=== PATIENT | female | born 1990 | race Caucasian/White ===

== ENCOUNTER 2024-10-01 05:34 | Inpatient (IN) | payer OTHER, SELFPAY ==
[2024-09-30] MEDS: ACETAMINOPHEN 325 MG TABLET 650 MG PO (19:30)
[2024-10-01] VITALS (65 sets, daily range): BP systolic 81–135; BP diastolic 25–107; PULSE 58–103; RESP 16–18; TEMP 35.8–36.6; O2SAT 94–99; BMI 29.4
--- OUTSIDE RECORDS SUMMARY | 2024-10-01 05:40 | XMS_ITS | Data Portability ---
Author Organization [facility] [place] Address [address] [address] Assessment Encounter Date Assessment Date Assessment LastModified by Organization Details LastModified Time 09/25/2024 09/25/2024 Patient is _38__weeks . Discussed plan. [email or web address] Not available 09/25/2024 13:37:55 09/28/2024 09/28/2024 Patient is ___weeks . Discussed plan. Not available 09/28/2024 10:21:05 Plan of Treatment Reminders Order Date Submit Date Provider Last Modified By Organization Details Last Modified Time Details Appointments SURG CSection 2024 07:30A Darlyn DECKER MD Not available Not available Not available Lab None recorded. Referral None recorded. Procedures None recorded. Surgeries None recorded. Imaging non-stres s test 2024 025 [email or web address] [place], [address], [place], [address], 09/30/2024 02:59:45 US, obstetric , follow-up 2024 025 [facility], [address], [address], [place], [address], 09/28/2024 16:52:01 US, obstetric , biophysic al profile + non-stres s test 2024 025 [facility], [address], [address], [place], [address], 09/28/2024 18:40:01 Medication Orders None recorded. Patient TargetsNo targets recorded. Patient InstructionsNo instructions recorded. Reason for Referral None Reported. Results Created Date Observation Date Name Description Value Unit Range Abnormal Flag Note LastModifiedBy Organization Detail LastModifiedTime 09/04/1909/03/2024 CULTU RE: GROUP B STREP SCREE N, REFLE X SUSCE PTIBI LITY result report SEE RESULT S BELOW Test: Cultu re: Group B Strep , Refle x Susce ptibi lity ([facility]/ [facility] ) Speci men Sourc e: Vagin a/Rec margarita Speci men Type: Vagin al/Re ctal Speci men Date: 025 1701 Resul t Date: 2024 1357 Resul t Statu s: Final resul t Abnor mal: No Resul ting Lab: [facility] [address] [facility] [address] Tel: CULTU RE ----- ----- ----- --- No Group B strep isola tarun at 2 days (ángel ctive broth enhan cemen t) Not Available [facility] (Lab) [address], [place], [address], 09/06/2024 15:00:39 09/04/1909/03/2024 US, obste tric, follo w-up No observ ation record ed. [address], [facility], [place], [address], 09/09/2024 06:13:38 09/04/1909/03/2024 US, obste tric, follo w-up No observ ation record ed. catherine [place] [address], [place], [address], 09/03/2024 18:19:38 09/26/1909/25/2024 non-s tress test No observ ation record ed. [email or web address] [place] [address], [place], [address], 09/25/2024 20:15:05 09/29/19 25 09/28/2024 US, obste tric, follo w-up No observ ation record ed. [email or web address] [place] [address], [place], [address], 09/28/2024 18:39:50 09/29/19 25 09/28/2024 US, obste tric, bioph ysica l profi le + non-s tress test No observ ation record ed. [email or web address] [place] [address], [place], [address], 09/28/2024 18:40:01 09/29/19 25 09/28/2024 US, obste tric, follo w-up No observ ation record ed. [email or web address] [address], [facility], [place], [address], 09/29/2024 18:01:00 09/29/19 25 09/28/2024 non-s tress test No observ ation record ed. [email or web address] [place] [address], [place], [address], 09/28/2024 16:32:50 10/01/19 25 09/25/2024 non-s tress test No observ ation record ed. [email or web address] [place] [address], [place], [address], 09/30/2024 20:57:19 Result Notes None recorded. Problems Name Problem SNOMED Code Status Onset Date Resolution Date Notes Provider Name and Address Organization Details Recorded Time 57841321 Active 2024 Meg Cheng [facility] [place] - [facility] 15:03:48 Deliveries by [id number] Active Regan Decker MD [address], [place], [address], [facility] 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 19:55:25 Problem Notes None recorded. Procedures Surgical History Date Name Laterality Status Provider Name and Address Organization Details Recorded Time 4 Date of Last Pap Smear completed Meg [facility] 08/07/2024 14:58:23 3 Caesarean Section completed Meg [facility] 08/07/2024 14:57:48 0 extraction of wisdom tooth completed Sabrina Westtz [facility] 09/25/2024 12:08:36 Imaging Results None recorded. Procedure Notes None recorded. Medical Equipment None Reported. Allergies Allergen ID Allergen Name Allergen Category Reaction Reaction Severity Criticality Documentation Date Start Date Code Code System Note Provider Name and Address Organization Details Recorded Time 68421 Penicilli n Not available rash Not available Not available 08/07/2024 22329 RxNorm [facility] 14:57:38 Medications Name Sig Start Date Stop Date Status Note LastModified by Organization Details LastModified Time valacyclovir 500 mg tablet Take 1 tablet twice a day by oral route. 025 active Not Available Not Available Not Avai lable + DHA active Not Available No t Available Not Available Vitals Date Recorded Body height Body mass index (BMI) Body weight Body height Body mass index (BMI) Body weight Systolic blood pressure Diastolic blood pressure Systolic blood pressure Diastolic blood pressure Provider Name and Address Organization Details Last Updated DateTime 5 165.1 cm 29.8 kg/m2 98048.0 3 g 165.1 cm 29.8 kg/m2 75957.0 3 g 139 mm[Hg] 80 mm[Hg] 139 mm[Hg] 80 mm[Hg] Sabrina Lilly [facility] 20:13:48 Date Recorded Body weight Systolic blood pressure Diastolic blood pressure Provider Name and Address Organization Details Last Updated DateTime 09/28/2024 22751.8494 9 g 115 mm[Hg] 79 mm[Hg] Meg Cheng [facility] 09/28/2024 10:22:45 Date Recorded Body height Body mass index (BMI) Body weight Systolic blood pressure Diastolic blood pressure Provider Name and Address Organization Details Last Updated DateTime 09/28/2024 165.1 cm 29.5 kg/m2 94681.29 g 115 mm[Hg] 79 mm[Hg] RUMA Rodríguez [facility] 09:42:15 Social History Question Answer Notes LastModified by Organizat ion Details LastModified Time Tobacco Smoking Status Never Smoker Meg Cheng [facility] 08/07/2024 15:02:09 Are You Blind Or Do You Have Difficulty Seeing? No Information n ot available 08/07/2024 What Is Your Level Of Caffeine Consumption? Occasional Information not available 08/07/2024 How Much Tobacco Do You Chew? None [email or web address] Information not available 08/28/2024 In The 14 Days Before Symptom Onset, Have You Had Close Contact With A Laboratory-confirm ed COVID-19 While That Case Was Ill? No Information n ot available 08/07/2024 In The 14 Days Before Symptom Onset, Have You Had Close Contact With A Person Who Is Under Investigation For COVID-19 While That Person Was Ill? No Information not available 08/07/2024 Have You Been To An Area Known To Be High Risk For COVID-19? No Information not available 08/07/2024 Are You Deaf Or Do You Have Serious Difficulty Hearing? No Information not available 08/07/2024 What Type Of Diet Are You Following? REGULAR Information n ot available 08/07/2024 What Is The Highest Grade Or Level Of School You Have Completed Or The Highest Degree You Have Received? [id number] Information not available 08/07/2024 Are There Any Guns Present In Your Home? No Information not available 08/07/2024 Do You Use Your Seat Belt Or Car Seat Routinely? Yes Information not available 08/07/2024 Are You Sexually Active? Yes Information not available 08/07/2024 Do You Have Smoke And Carbon Monoxide Detectors In Your Home? Yes Information not available 08/07/2024 How Much Tobacco Do You Smoke? No [email or web address] Information not available 08/28/2024 Do You Use Sunscreen Routinely? Yes Information not available 08/07/2024 Have You Used IV Drugs? No [email or web address] Information not available 08/28/2024 Do You Have Difficulty Walking Or Climbing Stairs? No Information not available 08/07/2024 Sex: Unknown Functional Status Question Answer Note LastModified by Organizat ion Details LastModified Time Do you use any illicit or recreational drugs? No Information not available 08/07/2024 What is your level of alcohol consumption? Occasional Information not available 08/07/2024 Are you currently employed? Yes Information not available 08/07/2024 Are you able to walk? YESWOREST Information not available 08/07/2024 Are you able to care for yourself? Yes Information n ot available 08/07/2024 Do you have difficulty dressing or bathing? No Information not available 08/07/2024 Mental Status Question Answer Note LastModified by Organization D etails LastModified Time Do you feel stressed (tense, restless, nervous, or anxious, or unable to sleep at night)? [id number] Information not available 08/07/2024 Family History Relationship Description Onset Age of this Age Resolved Age Notes LastModified by Organization Details LastModified Time Maternal Aunt Malignant tumor of cervix Not available 2024 15:01:35 Mother Hypercholest erolemia Not available 2024 15:01:43 Medical History Condition Response Allergies (Food, seasonal, environmental ) N Other N Drug/Latex Allergies/Reactions N Blood Transfusion N Breast Cancer N Dermatologic Disorders N Lung Disease N Defects or Inherited Disease N Breast Problem N Gestational Diabetes N Hematologic disorders N Anesthesia Complications N History of STI Y Deep Vein Thrombosis N Polycystic ovary syndrome N Anxiety Disorder N Autoimmune disease N Arthritis N Polyps N Infertility N Acid Reflux (GERD) N History of abnormal pap N Cancer N Varicosities N Stroke N Neurologic/Epilepsy N Endometriosis N High Cholesterol N Fibromyalgia N Headaches N Kidney Disease N Heart Problems Y Thyroid Problems N Kidney or Bladder Problems N GI Problems N Eating Disorder N Anemia N Art (IVF or FET) N Psychiatric Illness N Ovarian Cancer N Diabetes N Pulmonary (TB, Asthma) N Hepatitis/Liver Disease N No Past Medical History N Eczema N Urinary Tract Infection N Abuse/Domestic Violence N Asthma N Trauma/Violence N Depression/ depression N Heart Disease N Pre-Eclampsia N Hypertension N Osteoporosis N Thrombophilias N Gynecological History Statement/Question Response Abnormal Pap N Date of Last Mammogram Date of LMP 01/02/2024 Was last menstrual period normal N STIs/STDs Y HPV Vaccine N Current Control Method Age at First Child 32 Are cycles usually normal Y Date of Last Colonoscopy Frequency of Cycle (Q days) 28 Sexually Active? Y Menses Monthly Y Date of DEXA bone scan Date of Last Pap Smear 08/09/2023 Sexual Problems? N Obstetrics History GPAL:G 2 P 1 0 0 1 Type Value Full Term 1 Living 1 Total 2 Past Encounters Encounter ID Performer Location Encounter Start Date Encounter Closed Date Diagnosis/Indication Diagnosis SNOMED-CT Code Diagnosis ICD10 Code Diagnosis Note [id number] Regan Decker MD [place] [address] [address] 08/07/2024 13:38:43 08/07/2024 15:00:30 Single artery of umbilical cord on obstetric ultrasound scan 468559632 O36.8999 Z3A.31 [id number] Regan Decker MD [place] [address] [address] 08/07/2024 13:41:06 08/10/2024 11:40:59 Routine care 925227208 Z34.83 [id number] Donna Jessica CNM [place] [address] [address] 08/28/2024 14:45:17 08/31/2024 07:22:56 Gestation period, 34 weeks 68453452 Z3A.34 [id number] MD [facility] [place] [address],[place] [address] 09/03/2024 16:27:36 09/03/2024 17:05:12 Multigravida of advanced maternal age 415942504 O09.529 Z03.74 Z3A.35 [id number] MD Carlos [place] [address] [address] 09/03/2024 16:27:57 09/03/2024 18:01:19 section following previous section 350049081 O34.219 [id number] Regan Decker MD [place] [address] [address] 09/17/2024 15:41:19 09/17/2024 16:25:42 care status [id number] Z34.83 [id number] [facility] [address] [address] 09/25/2024 11:47:18 09/25/2024 13:55:52 Gestation period, 38 weeks 51532783 Z3A.38 [id number] [facility] [address] [address] 09/25/2024 20:09:12 09/26/2024 06:01:34 Single umbilical artery 933849761 O09.899 [id number] MD Carlos [place] [address] [address] 09/28/2024 09:00:36 09/28/2024 10:01:43 Single umbilical artery 548146077 O09.899 O41.03X0 Z3A.38 [id number] MD Carlos [place] [address] [address] 09/28/2024 09:01:00 09/28/2024 10:30:38 Single umbilical artery 345446966 O09.899 [id number] MD Carlos [place] [address] [address] 09/28/2024 10:12:17 09/28/2024 21:58:25 care status 498372799 Z34.83 [id number] Regan Decker MD [place] [address] [address] 09/28/2024 10:12:51 09/28/2024 11:14:16 Deliveries by [id number] care status 24 6680858 Z34.83 Health Concerns Section Related Observation LastModified by Organization Detai ls LastModified Time None Recorded Concern Status LastModified by Organization Details LastModified Time None Recorded Advance Directives Directive None Recorded Payers Encounter Date Sequence Insurance Name Policy Number Policy Bullard Covered Member ID Bullard Member ID Guarantor Name 09/25/2024 1 [employer] - [employer]EFIT PLAN - CHOICE POS II (POS) [id number] Debra D Jimenez [id number] 1 Debra Jimenez 09/28/2024 1 [employer] - [employer] B[employer]EFIT PLAN - CHOICE POS II (POS) [id number] Debra D Jimenez [id number] 1 Debra Jimenez 09/28/2024 1 [employer] - [employer]ICE BENEFIT PLAN - CHOICE POS II (POS) [id number] Debra D Jimenez [id number] 1 Debra Jimenez 09/28/2024 1 [employer] - [employer]ICE BENEFIT PLAN - CHOICE POS II (POS) [id number] Debra D Jimenez [id number] 1 Debra Jimenez 09/28/2024 1 [employer] - [employer] BENEFIT PLAN - CHOICE POS II (POS) [id number] Debra D Jimenez [id number] 1 Debra Jimenez OBGyn Episode Ob Episode Information Episode Created Date Number of Fetuses Patient Bloodtype Patient rh Status Prepregnancy Weight lbs Domestic Partner Domestic Partner Phone Father Name Communications Department Chair Status 08/08/19 25 1 O Positive 147 OPEN Fetus Data First Name Last Name Admitted to NICU Weight (g) Sex Living Outcome Pediatric Complications Fetus ID Race Codes Race Delivery Type [id number] Problems Problem Notes 2 VC Problem Name Start Date End Date Resolution Snomed Code Not e Deliveries by [id number] Lon Calculation Initial Lon Date Initial Exam Date Initial Exam Provider Initial Ultrasound Date Last Menstrual Period Date Ultra Sound Weeks Gestation 08/07/2024 02/27/2024 01/02/2024 8 Eighteen To Twenty Week Lon Update Ultra Sound Date Fundal Height At Umbil Quickening Date Ultra Sound Latest Weeks Gestation Final Lon Confirmed By Final Lon Confirmed Date Final Lon Date Ultra Sound Latest Days Gestation 0 [email or web address] 08/07/2024 10/07/19 25 0 Pre-lindsay Flowsheet Flowsheet Date 08/07/2024 Andersen Score Blood Edema Fundus Height Fundus Units Glucose Ketones Leukocytes Nitrite Labor Signs Protein Cervic Dilation Cervic Effacement Cervic Station Type Weight in lbs Pre/Post Dialysis Refused Weight 171.157583258874 BP Diastolic BP Location Tested BP Systolic BP Type 76 L arm 137 sitting Fetus Heart Rate Present Fetus Movement Comments this patient is a 33-year-ol d multiparous female at o41cnfd' gestation who presents for initial care. She has a history of term . Her medical, surgical, obstetric history is unremarkable. She is vaccinated. She was given precautions recommendations for . We talked about vaccines in . Talked about care in detail. She is having genetic testing. She had a normal 12 week ultrasound. To begin routine care. passed glucose tolerance test, Flowsheet Date 08/28/2024 Andersen Score Blood Edema Fundus Height Fundus Units Glucose Ketones Leukocytes Nitrite Labor Signs Protein Cervic Dilation Cervic Effacement Cervic Station neg trace Type Weight in lbs Pre/Post Dialysis Refused Weight 175.463988927596 BP Diastolic BP Location Tested BP Systolic BP Type 70 132 Fetus Heart Rate Present A 136 Present Fetus Movement A Yes Comments Patient is having some pain, cramping and nausea. pt considering reviewed risks, undecided, +FM doing well vertex by US, call for preadmit f/u as scheduled, gbs at 36 weeks Flowsheet Date 09/03/2024 Andersen Score Blood Edema Fundus Height Fundus Units Glucose Ketones Leukocytes Nitrite Labor Signs Protein Cervic Dilation Cervic Effacement Cervic Station Type Weight in lbs Pre/Post Dialysis Refused BP Diastolic BP Location Tested BP Systolic BP Type Fetus Heart Rate Present Fetus Movement Comments Flowsheet Date 09/03/2024 Andersen Score Blood Edema Fundus Height Fundus Units Glucose Ketones Leukocytes Nitrite Labor Signs Protein Cervic Dilation Cervic Effacement Cervic Station Type Weight in lbs Pre/Post Dialysis Refused 174.39380858531 BP Diastolic BP Location Tested BP Systolic BP Type 81 L arm 122 sitting Fetus Heart Rate Present Fetus Movement A Yes Comments no complaints, no problems, routine care, no contractions, no vaginal bleeding, no loss of fluid, no cramping. GBS done. Discussed risk in detail. To schedule , but she is still considering . Flowsheet Date 09/17/2024 Andersen Score Blood Edema Fundus Height Fundus Units Glucose Ketones Leukocytes Nitrite Labor Signs Protein Cervic Dilation Cervic Effacement Cervic Station Type Weight in lbs Pre/Post Dialysis Refused 181.924966465176 BP Diastolic BP Location Tested BP Systolic BP Type 76 L arm 118 sitting Fetus Heart Rate Present A 148 Present Fetus Movement A Yes Comments no complaints, no problems, routine care, no contractions, no vaginal bleeding, no loss of fluid, no cramping Flowsheet Date 09/25/2024 Andersen Score Blood Edema Fundus Height Fundus Units Glucose Ketones Leukocytes Nitrite Labor Signs Protein Cervic Dilation Cervic Effacement Cervic Station neg none Type Weight in lbs Pre/Post Dialysis Refused Weight 179.500648746595 BP Diastolic BP Location Tested BP Systolic BP Type 80 139 Fetus Heart Rate Present Fetus Movement A Yes Comments Patient states that having s ome pain, contractions, discharge, nausea and vomiting. plan membrane sweep Saturday, NST today R, 2 vessel cord, c/s scheduled for +FM, education and precautions Flowsheet Date 09/25/2024 Andersen Score Blood Edema Fundus Height Fundus Units Glucose Ketones Leukocytes Nitrite Labor Signs Protein Cervic Dilation Cervic Effacement Cervic Station Type Weight in lbs Pre/Post Dialysis Refused Weight 179.982237364283 BP Diastolic BP Location Tested BP Systolic BP Type 80 139 Fetus Heart Rate Present Fetus Movement Comments Flowsheet Date 09/28/2024 Andersen Score Blood Edema Fundus Height Fundus Units Glucose Ketones Leukocytes Nitrite Labor Signs Protein Cervic Dilation Cervic Effacement Cervic Station Type Weight in lbs Pre/Post Dialysis Refused BP Diastolic BP Location Tested BP Systolic BP Type Fetus Heart Rate Present Fetus Movement Comments Flowsheet Date 09/28/2024 Andersen Score Blood Edema Fundus Height Fundus Units Glucose Ketones Leukocytes Nitrite Labor Signs Protein Cervic Dilation Cervic Effacement Cervic Station Type Weight in lbs Pre/Post Dialysis Refused Weight 177.30872789729 BP Diastolic BP Location Tested BP Systolic BP Type 79 L arm 115 sitting Fetus Heart Rate Present Fetus Movement Comments Flowsheet Date 09/28/2024 Andersen Score Blood Edema Fundus Height Fundus Units Glucose Ketones Leukocytes Nitrite Labor Signs Protein Cervic Dilation Cervic Effacement Cervic Station Type Weight in lbs Pre/Post Dialysis Refused 177.029305849287 BP Diastolic BP Location Tested BP Systolic BP Type 79 L arm 115 sitting Fetus Heart Rate Present A 145 Fetus Movement A Yes Comments no complaints, no problems, routine care, no contractions, no vaginal bleeding, no loss of fluid, no cramping Flowsheet Date 09/28/2024 Andersen Score Blood Edema Fundus Height Fundus Units Glucose Ketones Leukocytes Nitrite Labor Signs Protein Cervic Dilation Cervic Effacement Cervic Station Type Weight in lbs Pre/Post Dialysis Refused BP Diastolic BP Location Tested BP Systolic BP Type Fetus Heart Rate Present A 144 Fetus Movement Comments no complaints, no problems, routine care, no contractions, no vaginal bleeding, no loss of fluid, no cramping Menstrual History Last Menstrual Date Menses Monthly On Bcp Conception Prior Menses Frequency Hcg Plus Date Menarche Onset Age 0901/02/2024 true Delivery Information Delivery Date Delivery Type Labor Anesthesia Weeks Gestation Incision Type Labor Labor Length Hrs Delivered By Post Complications Tubal Sterilization Discharge Date Comments Discharge Information Feeding Method Contraceptive Method Maternal HG B and HCT Levels Ob Episode Information Episode Created Date Number of Fetuses Patient Bloodtype Patient rh Status Prepregnancy Weight lbs Domestic Partner Domestic Partner Phone Father Name Communications Department Chair Status 08/08/19 25 1 CLOSED Fetus Data First Name Last Name Admitted to NICU Weight (g) Sex Living Outcome Pediatric Complications Fetus ID Race Codes Race Delivery Type 2834.95 M Full Term [id number] Primary Lon Calculation Initial Lon Date Initial Exam Date Initial Exam Provider Initial Ultrasound Date Last Menstrual Period Date Ultra Sound Weeks Gestation 0 Eighteen To Twenty Week Lon Update Ultra Sound Date Fundal Height At Umbil Quickening Date Ultra Sound Latest Weeks Gestation Final Lon Confirmed By Final Lon Confirmed Date Final Lon Date Ultra Sound Latest Days Gestation 0 0 Menstrual History Last Menstrual Date Menses Monthly On Bcp Conception Prior Menses Frequency Hcg Plus Date Menarche Onset Age Delivery Information Delivery Date Delivery Type Labor Anesthesia Weeks Gestation Incision Type Labor Labor Length Hrs Delivered By Post Complications Tubal Sterilization Discharge Date Comments 3 40 Discharge Information Feeding Method Contraceptive Method Maternal HG B and HCT Levels
[2024-10-01 06:21] LABS: Basophils Percent Auto 0.5 % (0.2-1.2); Eosinophils Absolute Auto 0.2 K/mm3 (0-0.3); Eosinophils Percent Auto 2.2 % (0-4.4); Hematocrit 38.4 % (37.0-47.0); Hemoglobin 12.7 g/dL (12.0-15.0); Immature Granulocyte Absolute 0.07 K/mm3 (0.00-0.031); Immature Granulocyte Percent A 0.8 % (0-0.5); Lymphocytes Absolute Auto 2.19 K/mm3 (0.9-3.2); Mean Corpuscular HGB Conc 33.1 g/dl (32-36); Mean Corpuscular Hemoglobin 27.6 pg (26-34); Mean Corpuscular Volume 83.5 fl (80-100); Mean Platelet Volume 10.7 fl (7.4-10.4); Monocytes Absolute Auto 0.6 K/mm3 (0.1-0.6); Monocytes Percent Auto 7.2 % (2.6-8.5); Neutrophils Absolute Auto 5.6 K/mm3 (1.3-6.7); Neutrophils Percent Auto 64.3 % (45.5-73.1); Platelet Count Result 265 k/mm3 (150-375); Red Cell Distribution Width 14.3 % (11.5-14.5); White Blood Count 8.8 K/mm3 (4.5-10.0)
[2024-10-01] MEDS: LACTATED RINGERS 1,000 ML 125 ML IV CONT (06:27)
--- NOTE | 2024-10-01 06:37 | LDADM ---
This patient, Debra Jimenez, was admitted to Labor/Delivery/Recovery 120 on 10/01/24 at 05:34. Plans for section, pain management and were discussed with patient. Patient/family oriented to hospital policies and general routines including ID bracelet, bed and alarms, visiting hours, pain management, procedures, bathroom and other care routines, personal items, smoking policy, room service/diet and guest tray routines, security routines, and visiting hours. Patient/Family are encouraged to report perceived risks to care and to ask questions if they do not understand what they are told or what they should do. See [facility]BI[facility] for further documentation.
[2024-10-01 07:13] LABS: HIV 1/2 Ab P24 Ag Result Negative (Negative)
[2024-10-01] MEDS: ONDANSETRON INJ 4 MG/2 ML VIAL IV PUSH ×3 (07:17→19:30)
[2024-10-01] MEDS: FAMOTIDINE 20 MG/2 ML VIAL IV PUSH (07:17)
[2024-10-01] MEDS: ACETAMINOPHEN 500 MG TABLET 1000 MG PO (07:22)
--- NOTE | 2024-10-01 07:24 | P.PNAN_ITS ---
Anes - Initial Pre Proc Eval Procedure: Operation Date: 10/01/24 07:30 Proposed Procedures p Repeat Section - Regan Laureano MD Date/Time: 10/01/24 07:24 Surgeon: Regan Laureano MD Pre Op Diagnosis: IOL Patient Data Age: 33 Gender: F Height: 1.65 m Weight: 80.28 kg Last Vital Signs Pulse 88 10/01/24 06:45 BP 126/84 10/01/24 06:45 O2 Del Method Room Air 10/01/24 06:35 Allergies Allergy/AdvReac Type Severity Reaction Status Date / Time Penicillins Allergy Mild Rash Verified 09/22/24 15:43 Home Medications ?Medication ?Instructions ?Recorded ?Confirmed ?Type vit no.95-ferrous 1 tablet PO DAILY 09/22/24 09/22/24 History fumarate 28 mg-folic acid 800 mcg tablet () Laboratory Tests 10/01/24 06:14 WBC 8.8 K/mm3 (4.5-10.0) RBC 4.60 M/mm3 (4.2-5.4) Hgb 12.7 g/dL (12.0-15.0) Hct 38.4 % (37.0-47.0) MCV 83.5 fl (80-100) MCH 27.6 pg (26-34) MCHC 33.1 g/dl (32-36) RDW 14.3 % (11.5-14.5) Plt Count 265 k/mm3 (150-375) MPV 10.7 H fl (7.4-10.4) Immature Gran % (Auto) 0.8 H % (0-0.5) Neut % (Auto) 64.3 % (45.5-73.1) Lymph % (Auto) 25.0 % (18.3-44.2) [place] % (Auto) 7.2 % (2.6-8.5) Eos % (Auto) 2.2 % (0-4.4) Baso % (Auto) 0.5 % (0.2-1.2) Lymph # (Auto) 2.19 K/mm3 (0.9-3.2) [place] # (Auto) 0.6 K/mm3 (0.1-0.6) Eos # (Auto) 0.2 K/mm3 (0-0.3) Baso # (Auto) 0.0 K/mm3 (0.0-0.1) Abs Immat Gran (auto) 0.07 H K/mm3 (0.00-0.031) Absolute Neuts (auto) 5.6 K/mm3 (1.3-6.7) Absolute Nucleated RBC 0.000 K/mm3 (0.0-0.012) Nucleated RBC % 0.0 % (0.0-0.2) HIV 1&2 Ab/P24 Ag 4thGn Negative (Negative) Blood Type O Positive Antibody Screen Negative Patient hx anesthesia problems: none Family hx anesthesia problems: none Results Review: All pre-operative results and documents have been reviewed as part of the pre- operative evaluation. [facility] Family History Family History (Updated 09/22/24 @ 15:16 by Melinda Cruz RN) Other Unknown family medical history Social History Social History Smoking status: Never smoker Substance use: never Do You Feel Safe in your Home?: Yes Lack of Transportation: No Lack of Food: Never True Current Housing: I Have Housing Concerned About Future Housing: No Difficulty Paying Gas/Electric Bills: No Difficulty Paying for Meds: No Currently Unemployed: No Education: Master's Degree or Higher Difficulty w/ Childcare or Family Care: No Spiritual care concerns: No Anes - Eval Final PreProcedure Day of Procedure 10/01/24 07:24 Patient weight: overweight Heart: regular rate and rhythm Lungs: clear to auscultation and normal air movement Airway: Mallampati scale class II Neurological: alert and oriented Last oral intake: >/= 8 hours ASA classification: II Emergent: no Anesthetic plan: proceed Anesthesia type and monitoring: regional spinal and standard monitoring Results Review: All pre-operative results and documents have been reviewed as part of the pre- operative evaluation. Informed Consent: The patient's anesthetic plan and its attendant risks and benefits were discussed with the patient/family/POA. Questions were solicited and answers provided to the satisfaction of the patient/family/POA.
--- NOTE | 2024-10-01 07:30 | PM.IMHP ---
H&P: HPI History of Present Illness Date/Time: 10/01/24 07:30 Chief Complaint: Term Narrative: This patient is a 33-year-old female, multiparous, at term with previous delivery. We have agreed to perform repeat . She understands risks, benefits, and alternatives. She has completed informed consent process and is ready to proceed. The patient understands the details of the procedure. The procedure has been explained in detail. She understands the risks. She understands that injuries may occur that result in hospitalization, more surgery, and severe illness. She understands risk of hemorrhage and infection. She denies any chest pain or shortness of breath. She denies any nausea, vomiting, fever, chills. Review of Systems Review of Systems: All systems reviewed & are unremarkable except as noted in HPI and below Constitutional: Constitutional: Denies chills, Denies fatigue, Denies fever(s) and Denies weakness Eyes: Eyes: Denies blurry vision, Denies change in vision, Denies loss of peripheral vision, Denies loss of vision, Denies other visual disturbances and Denies eye pain ENT: Denies vertigo, Denies dizziness, Denies hearing loss, Denies mouth pain, Denies nasal obstruction, Denies neck mass and Denies neck pain Cardiovascular: Cardiovascular: Denies chest pain, Denies diaphoresis, Denies syncope, Denies leg edema and Denies dyspnea Respiratory: Respiratory: Denies chest congestion, Denies cough, Denies hemoptysis, Denies dyspnea and Denies wheezing Gastrointestinal: Gastrointestinal: Denies abdominal pain, Denies constipation, Denies diarrhea, Denies nausea and Denies vomiting Genitourinary: Genitourinary: Denies hematuria, Denies change in libido, Denies nocturia, Denies genital lesions, Denies flank pain and Denies urinary urgency Musculoskeletal: Musculoskeletal: Denies abnormal gait, Denies back pain, Denies myalgias, Denies arthralgias, Denies joint swelling, Denies muscle weakness and Denies neck pain Integumentary/Breasts: Skin/Breast: Denies swelling, Denies breast pain, Denies breast mass, Denies dry skin, Denies nipple discharge, Denies unusual bruising and Denies jaundice Neurologic: Denies Neuro-related abnormal movements, Denies Abnormal speech present, Denies abnormal gait, Denies behavioral changes, Denies confusion, Denies vertigo, Denies dizziness, Denies syncope, Denies loss of vision, Denies memory loss, Denies convulsions and Denies weakness Psychiatric: Psychiatric: Denies abnormal sleep pattern, Denies behavioral changes, Denies change in libido, Denies confusion, Denies depression, Denies anhedonia and Denies memory loss Endocrine: Endocrine: Reports no additional endocrine complaints, Denies change in libido and Denies fatigue Hematologic/Lymphatic: Hematologic/Lymphatic: Reports no additional hematologic/lymphatic complaints Allergic/Immunologic: Allergic/Immunologic: Reports no additional allergic/immunologic complaints and Denies wheezing [facility] Family History Family History (Updated 09/22/24 @ 15:16 by Melinda Cruz RN) Other Unknown family medical history Social History Social History Smoking status: Never smoker Substance use: never Do You Feel Safe in your Home?: Yes Lack of Transportation: No Lack of Food: Never True Current Housing: I Have Housing Concerned About Future Housing: No Difficulty Paying Gas/Electric Bills: No Difficulty Paying for Meds: No Currently Unemployed: No Education: Master's Degree or Higher Difficulty w/ Childcare or Family Care: No Spiritual care concerns: No Meds Home Medications and Allergies Home Medications ?Medication ?Instructions ?Recorded ?Confirmed ?Type vit no.95-ferrous 1 tablet PO DAILY 09/22/24 09/22/24 History fumarate 28 mg-folic acid 800 mcg tablet () Allergies Allergy/AdvReac Type Severity Reaction Status Date / Time Penicillins Allergy Mild Rash Verified 09/22/24 15:43 Vital Signs Vital Signs - 24 hr 10/01/24 06:13 10/01/24 06:15 10/01/24 06:30 Pulse Rate 87 88 94 Blood Pressure 128/92 H 134/78 132/91 H Oxygen Delivery 10/01/24 06:35 10/01/24 06:45 Pulse Rate 88 Blood Pressure 126/84 Oxygen Delivery Room Air Exam Const: General: cooperative, healthy appearing, comfortable and no acute distress Orientation/consciousness: oriented to person, oriented to place and oriented to time HENMT: Head: normal to inspection Ears: external ears normal Face/Nose/Sinus: Normal external nose present and normal facial exam Face and sinus: normal facial exam Eyes: General: appearance normal, both eyes and all related structures Neck: Neck: normal visual inspection, trachea midline and supple Resp: Auscultation: clear to auscultation bilaterally, no crackles, no rales, no rhonchi and no wheezes Cardio: Rate: regular rate Rhythm: regular rhythm Heart sounds: no click, no murmurs and no rubs GI: GI Palp: No abdominal tenderness, No Soft to palpation, No Tenderness to palpation present (GI) and No Palpable mass present Auscultation: normal bowel sounds Skin: General skin exam: normal color and no rashes or lesions noted Neuro: General: oriented to person, oriented to place and oriented to time Extrem: General: normal to inspection, no joint enlargement, no clubbing, cyanosis or edema, no pedal edema and no calf tenderness Psych: Appearance: grossly normal Mental Status: mental status grossly normal Speech and movement: Normal speech and movement present H&P: Results Labs Labs: Short CBC 10/01/24 Range/Units 06:14 WBC 8.8 (4.5-10.0) K/mm3 Hgb 12.7 (12.0-15.0) g/dL Hct 38.4 (37.0-47.0) % Plt Count 265 (150-375) k/mm3 Assessment and Plan Assessment and plan (1) Previous delivery, delivered: Code(s): O34.219 - Maternal care for unspecified type scar from previous delivery Status: Acute Plan This patient is a 33-year-old female, multiparous, at term with previous delivery. We have agreed to perform repeat . She understands risks, benefits, and alternatives. She has completed informed consent process and is ready to proceed.
--- NOTE | 2024-10-01 07:32 | WPDHPUPDATE1 ---
History and Physical Update Update Date/Time: 10/01/24 07:32 History and Physical has been reviewed, including an updated exam of the patient. There are NO changes in the patient's condition. Risks, benefits, and alternatives have been discussed and questions answered. Patient agrees to proceed with procedure.
[2024-10-01] MEDS: ceFAZolin 2 GM/D5W 50 ML 2 GM/50 ML BAG IVPB (07:42)
--- NOTE | 2024-10-01 08:36 | W.PM.OBCSD ---
OB - Delivery Note Procedure Delivery date: 10/01/24 Pre-op diagnosis: Previous Delivery Post-op Diagnosis: Same Procedure Performed: Repeat Surgeon: Regan Laureano MD Anesthesia type: Spinal Description of Procedure/Findings: The patient was taken the operating room.? She was prepped and draped in dorsal supine position with a leftward tilt.? This was done after spinal anesthetic was applied.? A low-transverse skin incision was made and carried down till of the fascia with the knife.? The fascial incision was made with the knife.? The fascial incision was extended laterally with [place] scissors.? The fascia was tented upward superiorly and inferiorly the rectus muscles were dissected off bluntly.? The rectus muscles were the midline.? The preperitoneal fat and peritoneum were dissected open bluntly at the superior aspect of the rectus muscles.? The peritoneal incision was extended superior and inferior with good position of bladder.? The uterine incision was made with a scalpel down to the level of the amniotic cavity.? The amniotic cavity was entered bluntly.? The infant was delivered.? The cord was clamped and cut and the infant was handed off to waiting pediatric staff.? Cord bloods were obtained.? The placenta was removed manually.? The uterus was exteriorized.? The uterus was cleared of all clots, debris and membranes.? The uterus was closed in 0 Vicryl running lock fashion.? An imbricating over a was placed along the incision line as well.? The uterus was returned to the abdomen.? The gutters were cleared of all clots and debris.? The fascia was closed with 0 Vicryl running fashion.? The subcutaneous tissue was irrigated pinpoint bleeders were cauterized.? The skin was closed with subcuticular absorbable rayne.? The skin incision line was covered with glue.? The patient tolerated the procedure well.? She has taken recovery room in stable condition.? Sponge lap and needle counts were correct x2.? Drains: No Packing: No Pathology: None sent Complications: No immediate complications Condition: Stable Disposition: Floor
[2024-10-01] MEDS: OXYTOCIN 30 UNITS/NS 500 ML 30 UNITS/500 ML BAG 125 UNITS IV CONT (10:41)
--- NOTE | 2024-10-01 11:10 | OBPPTRN ---
Patient transferred to post room #291 via stretcher. Support person present. Oriented to unit, room, information board, rooming in, admission packet and security measures. Patient verbalizes understanding.
[2024-10-01] MEDS: ACETAMINOPHEN 325 MG TABLET 650 MG PO (12:59)
[2024-10-01] MEDS: SIMETHICONE 80 MG TAB.CHEW PO ×2 (12:59→16:30)
[2024-10-01] MEDS: MULTIVIT/MIN/PREN/FOL AC/IRON TABLET 1 TAB PO (12:59)
[2024-10-01] MEDS: KETOROLAC 15 MG/ML VIAL (*BKC) IV PUSH ×2 (13:00→19:30)
[2024-10-01 15:03] LABS: Syphilis IgG/IgM Antibody Non-Reactive (Nonreactive)
[2024-10-01] MEDS: DEXTROSE 5%/0.45% SOD CHL 1,000 ML 125 ML IV CONT (15:03)
[2024-10-01] MEDS: DOCUSATE SODIUM 100 MG CAPSULE PO (16:30)
--- NOTE | 2024-10-01 17:41 | PC.NURSE ---
1730.Introductions were made, then consulted with patient to assess needs related to . Discussed with mother her plans to feed her infant and the experience so far. Encouraged mother to express any questions or concerns she has regarding feedings. Advised her to call out for a latch check or if she needs assistance waking or positioning baby. Reviewed the blue feeding worksheet for required output and feeding at least 8-12 times every 24 hours. Resources provided for inpatient and outpatient services with the feeding sheet, mom/baby guide, and name/number written on the communication board. Mother voiced understanding of information and will call if there is a request for assistance. Observed mother latching infant to the [right] breast in [cross cradle] position. Infant [was] able to maintain an appropriate latch. Mother [declines] nipple pain/discomfort [throughout feeding]. Encouraged mother to keep awake and nursing at the breast for as long as baby desires. Mother taught to listen for infant swallowing during feedings. Reviewed using the blue feeding sheet to record time and duration of feeding. Mother voiced understanding of the education shared, to call for assistance if the does not latch or if there is discomfort with . name/number on communication board. Reported to the Primary RN.?
[2024-10-01] MEDS: LIDOCAINE 5% PATCH 1 PATCH TRANSDERM (19:30)
[2024-10-01] MEDS: KCL 20 MEQ/D5/0.45% SOD CHL 1,000 ML 125 ML IV CONT (23:12)
[2024-10-02 00:40] VITALS: BP 95/58; PULSE 87; RESP 16; TEMP 36.8; O2SAT 97
[2024-10-02] MEDS: KETOROLAC 15 MG/ML VIAL (*BKC) IV PUSH ×2 (00:40→06:43)
[2024-10-02] MEDS: ACETAMINOPHEN 325 MG TABLET 650 MG PO ×4 (00:40→19:25)
[2024-10-02 04:05] LABS: Basophils Percent Auto 0.2 % (0.2-1.2); Eosinophils Absolute Auto 0.1 K/mm3 (0-0.3); Eosinophils Percent Auto 0.7 % (0-4.4); Hematocrit 30.6 % (37.0-47.0); Hemoglobin 10.1 g/dL (12.0-15.0); Immature Granulocyte Absolute 0.05 K/mm3 (0.00-0.031); Immature Granulocyte Percent A 0.4 % (0-0.5); Lymphocytes Absolute Auto 2.24 K/mm3 (0.9-3.2); Lymphocytes Percent Auto 18.9 % (18.3-44.2); Mean Corpuscular Volume 84.8 fl (80-100); Mean Platelet Volume 10.5 fl (7.4-10.4); Monocytes Absolute Auto 0.9 K/mm3 (0.1-0.6); Monocytes Percent Auto 7.2 % (2.6-8.5); Neutrophils Absolute Auto 8.6 K/mm3 (1.3-6.7); Neutrophils Percent Auto 72.6 % (45.5-73.1); Platelet Count Result 225 k/mm3 (150-375); Red Blood Count 3.61 M/mm3 (4.2-5.4); Red Cell Distribution Width 14.5 % (11.5-14.5); White Blood Count 11.9 K/mm3 (4.5-10.0)
[2024-10-02] MEDS: HYDROcodone/acetaminophen (*CRX) 5-325 MG TABLET 1 TAB PO (04:15)
--- NOTE | 2024-10-02 07:35 | P.PNOB_ITS ---
OB - PN: Subj Subjective Date/time seen: 10/02/24 07:35 Interval history: pp day 1 manage pain start to ambulate OB - PN: Obj Data Labs 10/02/24 03:55 Labs: Laboratory Results - last 24 hr 10/01/24 10/02/24 06:14 03:55 WBC 11.9 H RBC 3.61 L Hgb 10.1 L Hct 30.6 L MCV 84.8 MCH 28.0 MCHC 33.0 RDW 14.5 Plt Count 225 MPV 10.5 H Immature Gran % (Auto) 0.4 Neut % (Auto) 72.6 Lymph % (Auto) 18.9 [place] % (Auto) 7.2 Eos % (Auto) 0.7 Baso % (Auto) 0.2 Lymph # (Auto) 2.24 [place] # (Auto) 0.9 H Eos # (Auto) 0.1 Baso # (Auto) 0.0 Abs Immat Gran (auto) 0.05 H Absolute Neuts (auto) 8.6 H Absolute Nucleated RBC 0.000 Nucleated RBC % 0.0 Syphilis IgG/IgM Ab Non-reactive OB - PN A/P Plan day: 1 Plan: routine care Time Spent With Patient Time: Total time spent is greater than 50% in coordination of care (as documented) at patient's floor/unit and/or counseling patient: Review of Systems 2 Review of Systems: All systems reviewed & are unremarkable except as noted in HPI and below Exam 2 Const: General: cooperative and healthy appearing Neck: Neck: normal visual inspection Resp: Effort & Inspection: normal respiratory effort GI: Other: incision CDI
[2024-10-02 08:05] VITALS: BP 111/71; PULSE 78; RESP 16; TEMP 37.7; O2SAT 97
--- NOTE | 2024-10-02 08:25 | PC.NURSE ---
Observed mother latching to the [left] breast in [cradle] position. [was not] able to maintain an appropriate latch. Mother [complains of] nipple pain/discomfort [throughout feeding]. Suggested mother try feeding on that side using the football hold to facilitate a latch more similar to feeding in cradle on the right. Mother prefers to feed infant on the right breast at this time as it is more comfortable. Encouraged mother to keep infant awake and nursing at the breast for as long as baby desires. Mother taught to listen for infant swallowing during feedings (swallows noted on left and right breast). Mother voiced understanding of the education shared, to call for assistance if the does not latch or if there is discomfort with . name/number on communication board. Reported to the Primary RN.? ?
[2024-10-02] MEDS: SIMETHICONE 80 MG TAB.CHEW PO ×3 (08:39→15:54)
[2024-10-02] MEDS: MULTIVIT/MIN/PREN/FOL AC/IRON TABLET 1 TAB PO (08:39)
[2024-10-02] MEDS: DOCUSATE SODIUM 100 MG CAPSULE PO ×2 (08:39→15:54)
[2024-10-02] MEDS: IBUPROFEN 600 MG TABLET PO ×2 (12:31→19:25)
--- NOTE | 2024-10-02 14:45 | WPDANLDPN2 ---
Anes-Prog Note L&D Date/Time: 10/02/24 14:45 Comfortable throughout: section Neuraxial method: spinal Epidural/Spinal procedure site: clean & non-tender Neuro status: Neuro function grossly intact. Cardiovascular status: normal Respiratory status: normal Airway patency: baseline Mental status: baseline Vital Signs: Last Vital Signs Temp 37.7 C H 10/02/24 08:05 Pulse 78 10/02/24 08:05 Resp 16 10/02/24 08:05 BP 111/71 10/02/24 08:05 Pulse Ox 97 10/02/24 08:05 O2 Del Method Room Air 10/01/24 08:45 Pain score (VAS): 2 I/O: Intake & Output 10/01/24 10/02/24 10/02/24 23:59 07:59 15:59 Intake Total 1550 1175 Output Total 325 2250 Balance 1225 -1075 Patient feedback: Patient satisfied with anesthetic care.
--- NOTE | 2024-10-02 14:45 | WPDANLDNPN2 ---
Anes-Prog Note L&D-Neuraxial Date/Time: 10/02/24 14:45 Patient feedback: Patient satisfied with post-operative pain management.
[2024-10-02] MEDS: HYDROcodone/acetaminophen (*CRX) 10-325 MG TABLET 1 TAB PO (15:54)
[2024-10-02 19:25] VITALS: BP 111/63; PULSE 84; RESP 16; TEMP 37.2; O2SAT 96
[2024-10-02] MEDS: LIDOCAINE 5% PATCH 1 PATCH TRANSDERM (21:38)
[2024-10-03] MEDS: ACETAMINOPHEN 325 MG TABLET 650 MG PO ×3 (01:25→14:24)
[2024-10-03] MEDS: IBUPROFEN 600 MG TABLET PO ×3 (01:25→14:24)
[2024-10-03] MEDS: SIMETHICONE 80 MG TAB.CHEW PO ×2 (07:43→14:24)
[2024-10-03] MEDS: MULTIVIT/MIN/PREN/FOL AC/IRON TABLET 1 TAB PO (07:43)
[2024-10-03] MEDS: DOCUSATE SODIUM 100 MG CAPSULE PO (07:43)
[2024-10-03 08:13] VITALS: BP 119/80; PULSE 83; RESP 18; TEMP 36.7; O2SAT 97
[2024-10-03] MEDS: HYDROcodone/acetaminophen (*CRX) 10-325 MG TABLET 1 TAB PO (09:40)
--- NOTE | 2024-10-03 11:13 | P.PNOB_ITS ---
OB - PN: Subj Subjective Date/time seen: 10/03/24 11:13 Interval history: pp day 1 manage pain start to ambulate Patient comments: no complaints, pain well controlled, incisional pain, tolerating diet and flatus present OB - PN: Obj Data Labs 10/02/24 03:55 OB - PN A/P Plan day: 2 Plan: routine care Comments: POD#2 LTCS - no problems, Time Spent With Patient Time: Total time spent is greater than 50% in coordination of care (as documented) at patient's floor/unit and/or counseling patient: Exam 2 Const: General: comfortable, no acute distress and alert Resp: Effort & Inspection: normal respiratory effort Auscultation: no crackles, no rales and no rhonchi Cardio: Rate: regular rate Heart sounds: no click, no murmurs and no rubs GI: Inspection: non-distended Auscultation: normal bowel sounds Other: Incision - CDI Extrem: General: normal to inspection, no pedal edema and no calf tenderness
--- NOTE | 2024-10-03 11:14 | PM.OBDSVD ---
DS: Admitting Diagnosis Discharge Date October 03, 2024 Admitting Diagnosis Term DS: Discharge Diagnosis Discharge Diagnosis (1) Previous delivery, delivered: Code(s): O34.219 - Maternal care for unspecified type scar from previous delivery Status: Acute OB - DS: Summary OB Procedures : None OB Procedures Intrapartum: Spontaneous Vag Delivery OB Procedures: : None Peripartum Data Procedures: Procedures Operation Date: 10/01/24 07:30 Actual Procedure Side Surgeon p Repeat Section Not Applicable Regan Laureano MD Time Spent with Patient Time attestation: Total time spent providing and/or coordinating discharge services: Discharge Plan Discharge Discharging Clinician: Regan Laureano Patient Disposition: Home Activity: pelvic rest Diet: regular Patient Instructions: Antibiotic Form Patient Language: Citizen Of [place] Stand Alone Forms: General Discharge Information Follow-up/Referrals: Regan Laureano MD [Physician] - Discharge Medications: New hydrocodone-acetaminophen 5-325 mg tablet 1 - 2 tablet PO Q6H PRN (Reason: pain) Qty: 25 0RF Continued PNV cmb#95-ferrous fumarate-FA [] 28 mg iron- 800 mcg tablet 1 tablet PO DAILY Date of admission: 10/01/24 05:34 Primary Care Provider: PHYSICIAN,SLOT OPERATIONS MANAGER Admitting Provider: Regan Laureano Attending physician on admission: Regan Laureano Condition: Stable
[2024-10-05 08:29] VITALS: BP 123/82; PULSE 98; RESP 18; TEMP 36.6; O2SAT 99
== END 2024-10-03 16:09 | disposition home or self-care (01) | DRG 788 ==
LOC: ANHLDR 05:38 → ANHOB2 11:12
PROVIDERS: Admitting Provider Obstetrics & Gynecology; Visit Provider Obstetrics & Gynecology
PROC: 10D00Z1 Extraction of Products of Conception, Low, Open Approach (ICD-10-PCS; CPT 59514; principal; 2024-10-01 07:30)
DX: O34.219 Maternal care for unspecified type scar from previous cesarean delivery (principal); O36.8930 Maternal care for other specified fetal problems, third trimester, not applicable or unspecified; Z88.0 Allergy status to penicillin; Z3A.39 39 weeks gestation of pregnancy; Z37.0 Single live birth
CPT/HCPCS: 36415; 85025; 86593; 86703; 86850; 86900; 86901; A9270; G0432; J0690; J1100; J1200; J1885; J2274; J2371; J2405; J2590; J3480; J7120

== ENCOUNTER 2025-04-07 08:52 | Outpatient (CLI) | payer OTHER, SELFPAY ==
--- NOTE | ~2025-04-07 | US_ITS ---
US right upper quadrant Indication: Elevated alkaline phosphate level Comparison: None Technique: Smith-scale and color Doppler images were obtained. Findings: LIVER: Unremarkable, liver contours intact, no lesions. Normal echogenicity. . GALLBLADDER/BILIARY: Unremarkable.No cholelithiais, wall thickening or pericholecystic fluid. No biliary dilatation. CBD 3 mm. Parrott sign negative. PANCREAS: Unremarkable. Right Kidney: Right kidney 11.2 cm, normal. Impression: No acute abnormality. Reviewed, dictated and finalized at location [facility] Impression: No acute abnormality.
== END 2025-04-07 08:53 | disposition home or self-care (01) ==
PROVIDERS: PCP Student in an Organized Health Care Education/Training Program; Visit Provider Student in an Organized Health Care Education/Training Program
DX: R74.8 Abnormal levels of other serum enzymes (principal)
CPT/HCPCS: 76705